=== PATIENT | male | born 1995 | race Caucasian/White ===

== ENCOUNTER 2017-10-24 12:43 | Emergency (ER) | payer OTHER ==
[2017-10-24 12:56] VITALS: TEMP 97.9; O2SAT 97
[2017-10-24] MEDS ORDERED: NS 1,000 ML IV ONE (15:09)
[2017-10-24 15:39] LABS: % IMMATURE GRANULYOCYTES 0.3 % (0.0-1.1); ABSOLUTE IMMATURE GRANULOCYTES 0.02 10^3/uL (0.00-0.10); ADD DIFF? NO; ADD MORPH? NO; ADD SCAN? NO; ATYPICAL LYMPHOCYTE FLAG 10 (0-99); FRAGMENT RBC FLAG 0 (0-99); HEMATOCRIT 43.4 % (40.0-51.0); HEMOGLOBIN 15.6 g/dL (13.7-17.5); LEFT SHIFT FLG 0 (0-99); LIPEMIA HEMOLYSIS FLAG 90 (0-99); MEAN CELL HEMOGLOBIN 33.3 pg (27.9-34.1); MEAN CELL HEMOGLOBIN CONCENTR. 35.9 g/dL (32.4-36.7); MEAN CELL VOLUME 92.5 fL (81.5-99.8); MEAN PLATELET VOLUME 10.2 fL (8.7-11.7); PLATELET CLUMPS FLAG 0 (0-99); PLATELET COUNT 259 10^3/uL (150-400); RED BLOOD CELL COUNT 4.69 10^6/uL (4.40-6.38); RED CELL DISTRIBUTION WIDTH 13.1 % (11.5-15.2)
[2017-10-24 16:02] LABS: ANION GAP 15 mEq/L (8-16); CALCIUM 9.9 mg/dL (8.5-10.4); CARBON DIOXIDE 27 mEq/l (22-31); CHLORIDE 101 mEq/L (97-110); CREATININE 0.8 mg/dL (0.7-1.3); GLOMERULAR FILTRATION RATE > 60; GLUCOSE 108 mg/dL (70-100); SODIUM 143 mEq/L (134-144)
--- NOTE | 2017-10-24 16:08 | EDPHY ---
General Narrative: CHIEF COMPLAINT: hand pain, foot pain HISTORY OF PRESENT ILLNESS: Patient complains of pain to both feet and both hands. This started about 4 weeks ago and the feet. It is a burning, sharp pain that is constant. It has never improved. It is worse when he attempts to walk. Complains of weakness in the legs as well. Over the past 2 weeks that spread to his hands. It does not involve the arms, thighs, or trunk. Symptoms have not improved, thus he went to an urgent care. While he was there he started have some chest pain that he feels was due to anxiety. This was early this morning. They sent him to our facility for higher level care. He no longer has any chest pain but still has arm any complaints this symptoms do get much worse when he goes outside in the cold and improves when he goes inside. No other associated complaints or modifying factors. REVIEW OF SYSTEMS: Ten systems reviewed and are negative unless otherwise noted in the HPI PCP: None SPECIALISTS: None PAST MEDICAL HISTORY: Orthopedic injuries, anxiety. Previous IV drug abuse. No recent immunizations or vaccinations PAST SURGICAL HISTORY: Orthopedic SOCIAL HISTORY: Nonsmoker. Occasional alcohol. Occasional marijuana use. [employer] student FAMILY HISTORY: Noncontributory EXAMINATION General Appearance: Alert, no distress Head: normocephalic, atraumatic Eyes: Pupils equal and round, no conjunctival pallor or injection ENT, Mouth: Mucous membranes moist. Airway patent Neck: Normal inspection, supple, non-tender Respiratory: Lungs are clear to auscultation. No wheezing rhonchi or crackles Cardiovascular: Regular rate and rhythm. No murmur Gastrointestinal: Abdomen is soft and nontender Back: non-tender, no bony abnormalities Neurological: GCS 15. Cranial nerves 2-12 grossly intact A&O, nonfocal, normal steady gait. Strength is symmetric in all 4 limbs at 5/5. Sensory symmetric in the arms and legs. Normal [id number]. No pronator drift. Skin: Warm and dry, no rash. No petechiae or purpura. Extremities: Nontender, no pedal edema Psychiatric: Mood and affect normal DIFFERENTIAL DIAGNOSES: Including but not limited to peripheral neuropathy, Raynaud's phenomenon, electrolyte disturbance, drug abuse, diabetes MDM: 3:05 p.m. Pain and reported sensory changes with no appreciated abnormality on examination. His neuro exam is fully intact. Excellent strength in all 4 limbs. I will order laboratory studies and provide IV fluid with some Toradol for his pain if his creatinine is normal. 4:25 p.m. Laboratory studies are all within normal limits. I re-evaluated the patient at this time. He still having pain, thus the Toradol will now be administered. We discussed going home with short course of Neurontin, hydroxyzine and calcium channel bessy. I do not think the patient has Guillain-Percy as he has a completely normal neuro examination despite his complaints. I do feel he may have a component of Raynaud's phenomenon and possibly peripheral neuropathy. Laboratory studies are negative and I will refer him to primary care physician for further workup. He is comfortable with this plan. He is fully ambulatory without difficulty. SUPERVISION: Patient was independently examined, but I discussed the case with my secondary supervising physician Dr. Mayo - History Smoking Status: Never smoked - Objective Vital Signs: Initial Vital Signs Temperature (C) 97.9 F 10/24/17 12:54 Heart Rate 104 H 10/24/17 12:54 Respiratory Rate 18 10/24/17 12:54 Blood Pressure 120/94 H 10/24/17 12:54 O2 Sat (%) 97 10/24/17 12:54 O2 Delivery Mode Room Air Allergies/Adverse Reactions: No Known Allergies Allergy (Verified 05/01/16 14:13) Home Medications: Medication Instructions Recorded Hydrocodone/APAP 5/325 [Fortine 1 - 2 tab PO Q4H PRN #10 tab 05/01/16 5/325] Ibuprofen [Motrin (*)] 800 mg PO Q6-8PRN #30 tab 05/01/16 LORazepam [Ativan] 0.5 mg PO 05/01/16 guaiFENesin [Guaifenesin ER] 1,200 mg PO BID #10 tab.er.12h 05/01/16 Gabapentin [Neurontin 300 MG (*)] 300 mg PO BID PRN #10 cap 10/24/17 NIFEdipine [Procardia 10 mg (*)] 10 mg PO TID PRN #15 cap 10/24/17 hydrOXYzine HCL [Hydroxyzine HCl] 1 - 2 tab PO Q6-8PRN PRN #15 tablet 10/24/17 Departure - Departure Disposition: Home, Routine, Self-Care Clinical Impression: Foot pain Qualifiers: Laterality: bilateral Qualified Code(s): M79.671 - Pain in right foot; M79.672 - Pain in left foot; M79.672 - Pain in left foot Hand pain Qualifiers: Laterality: bilateral Qualified Code(s): M79.641 - Pain in right hand; M79.642 - Pain in left hand; M79.642 - Pain in left hand Condition: Good Instructions: Raynaud Disease (ED), Peripheral Neuropathy (ED), Paresthesia (ED ) Additional Instructions: 1. Neurontin as prescribed. Wait 1-2 hours before trying next medication 2. If no improvement with the 1st medication, try Nifedipine as prescribed. Wait 1-2 hours before trying next medication 3. If no improvement with the 2nd medication, try hydroxyzine as prescribed 4. Contact the on-call primary care physician as discussed and provided 5. ED precautions as discussed Referrals: Christi Gutierrez MD [Medical Doctor] - As per Instructions Prescriptions: Gabapentin [Neurontin 300 MG (*)] 300 mg PO BID PRN #10 cap PRN Reason: Pain, Breakthrough hydrOXYzine HCL [Hydroxyzine HCl] 1 - 2 tab PO Q6-8PRN PRN #15 tablet PRN Reason: Anxiety NIFEdipine [Procardia 10 mg (*)] 10 mg PO TID PRN #15 cap PRN Reason: Pain, Breakthrough
[2017-10-24] MEDS ORDERED: KETOROLAC 30 MG/1 ML SDV IVP ONE (16:26)
[2017-10-24 16:39] VITALS: BP 140/96; PULSE 85; RESP 16
== END 2017-10-24 17:05 | disposition home or self-care (01) ==
DX: M79.672 Pain in left foot (principal); M79.671 Pain in right foot; M79.641 Pain in right hand; M79.642 Pain in left hand
CPT/HCPCS: 96374; J1885

== ENCOUNTER 2017-10-27 09:28 | Emergency (ER) | payer OTHER ==
--- NOTE | 2017-10-27 10:07 | EDPHY ---
General Narrative: CHIEF COMPLAINT: Difficulty breathing, tingling of the hands and feet HISTORY OF PRESENT ILLNESS: Patient complains of ongoing pain and tingling in the hands and feet. This started 4 weeks ago in the feet, 10 days ago in the hands. It is worsening. It is now moving up to the wrist. He also has some difficulty breathing and intermittent chest pain over the past 2 days. I evaluated the patient with same complaints 2 days ago. He was discharged home stable condition with medications to help his symptoms. He said the medications do help, the nifedipine more than the others. But not significantly. No exertional chest pain. No cough. No headache. No neck pain or stiffness. No difficulty urinating. No saddle anesthesia. No back pain. No IV drug use. No other associated complaints or modifying factors. He attempted to contact the on- call primary care physician with no appointment available this week. REVIEW OF SYSTEMS: Ten systems reviewed and are negative unless otherwise noted in the HPI PCP: Currently trying to establish with Dr. Gutierrez SPECIALISTS: None PAST MEDICAL HISTORY: Anxiety, Orthopedic injuries PAST SURGICAL HISTORY: Orthopedic SOCIAL HISTORY: Nonsmoker. Alcohol user. For IV drug use FAMILY HISTORY: Noncontributory EXAMINATION General Appearance: Alert, no distress Head: normocephalic, atraumatic Eyes: Pupils equal and round, no conjunctival pallor or injection ENT, Mouth: Mucous membranes moist. Airway patent Neck: Normal inspection, supple, non-tender Respiratory: Lungs are clear to auscultation no wheezing, rhonchi or crackles Cardiovascular: Regular rate and rhythm. No murmur Gastrointestinal: Abdomen is soft and nontender. No tympany. No rigidity. Bowel sounds symmetric in all 4 quadrants. Back: non-tender, no bony abnormalities Neurological: GCS 15. Cranial nerves 2-12 grossly intact. A&O, nonfocal, strength is symmetric in all 4 limbs of 5/5. No pronator drift. Normal finger- nose. Reports paresthesia on the backs and palms of the hands as well as the dorsum and plantar surface of the feet. Skin: Warm and dry, no rash Extremities: Nontender, no pedal edema Psychiatric: Mood and affect normal DIFFERENTIAL DIAGNOSES: Including but not limited to peripheral neuropathy, anxiety, Guillain-Champion, electrolyte disturbance MDM: 10:00 a.m. Ongoing paresthesia of the hands and feet with difficulty breathing. None of the symptoms have acutely change the past 2 days, and they have all been present for greater than 2 days. I examined the patient 2 days ago and his examination is unchanged. He is fully neuro intact for his vital signs are within normal limits. I did not obtain a chest x-ray 2 days ago, but I will today. I will discuss with Dr. Mayo. Laboratory studies pending. 10:15 a.m. Patient evaluated by Dr. Mayo. He agrees that we should proceed with MRIs as ordered. Clinical suspicion is low for any organic cause for this, but the patient does returned with persistent complaints that do not match specifically for any one diagnosis that we can yet ascertain. 11:00 a.m. Contacted by MRI department (Monique). Notified that the patient will now be able to MRI for his for scans until 1:30 p.m. due to the time frame required for the 4 scans. Laboratory studies are unremarkable. Chest x-ray as read by me reveals no acute findings. 12:00 p.m. Patient resting comfortably. Awaiting MRI. No acute distress. 1:30 p.m. Patient going to MRI 2:40 p.m. Notified by radiologist Dr. Parks. MRI of the brain and cervical spine are within normal limits. Thoracic and lumbar spine pending. 3:12 p.m. Notified by radiologist Dr. Parks. 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 MR lumbar spine pending. 3:25 p.m. Contacted by radiologist Dr. Parks. MRI of the lumbar spine findings discussed. I will consult Neurology to discuss the thoracic lumbar findings. 3:45 p.m. Case discussed with Dr. Green. He does not feel that the thoracic hydromyelia would contribute to the patient's symptoms. He would like the patient to be seen in his office. I discussed this with the patient he is comfortable this plan but his strength remains symmetric. He is in no acute distress. Discharge home with short course of anti anxiety medication and outpatient follow-up instructions. ED precautions discussed. SUPERVISION: Patient was evaluated and examined in conjunction with my secondary supervising physician as documented. We have both examined the patient. - Diagnostics Imaging Results: Imaging Impressions Chest X-Ray 10/27/17 10:00 Impression: Normal. Brain MRI 10/27/17 10:16 Impression: Normal MRI of the brain without contrast. Cervical Spine MRI 10/27/17 10:16 Impression: 1. Mild features of degenerative disk disease at C2-C3, with left paracentral annular bulging, without neural impingement. Cervical spine is otherwise normal in appearance. Lumbar Spine MRI 10/27/17 10:16 Impression: Mild features of degenerative disk disease at L5-S1, otherwise negative MRI examination of lumbar spine. Results called to Brian Cárdenas PA-C, at 3:30 p.m. Thoracic Spine MRI 10/27/17 10:16 Impression: 1. Mild features of degenerative disk disease at T7-T8 and T8-T9. No evidence of discrete disk prolapse or neural impingement. 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 Results called to Brian Cárdenas PA-C, at 3:10 PM. - History Smoking Status: Never smoked - Objective Vital Signs: Initial Vital Signs Temperature (C) 98.4 F 10/27/17 09:30 Heart Rate 76 10/27/17 09:30 Respiratory Rate 16 10/27/17 09:30 Blood Pressure 134/82 H 10/27/17 09:30 O2 Sat (%) 98 10/27/17 09:30 O2 Delivery Mode Room Air Allergies/Adverse Reactions: No Known Allergies Allergy (Verified 10/27/17 09:29) Home Medications: Medication Instructions Recorded Gabapentin [Neurontin 300 MG (*)] 300 mg PO BID PRN #10 cap 10/24/17 NIFEdipine [Procardia 10 mg (*)] 10 mg PO TID PRN #15 cap 10/24/17 LORazepam [Ativan] 1 mg PO Q8 PRN #9 tablet 10/27/17 Laboratory Results: Laboratory Results 10/27/17 10:11 10/27/17 10:11 10/27/17 10/27/17 10/27/17 11:15 10:11 10:11 WBC 4.96 10^3/uL 10^3/uL (3.80-9.50) RBC 4.20 10^6/uL L 10^6/uL (4.40-6.38) Hgb 13.9 g/dL g/dL (13.7-17.5) Hct 39.6 % L % (40.0-51.0) MCV 94.3 fL fL (81.5-99.8) MCH 33.1 pg pg (27.9-34.1) MCHC 35.1 g/dL g/dL (32.4-36.7) RDW 13.0 % % (11.5-15.2) Plt Count 213 10^3/uL 10^3/uL (150-400) MPV 10.0 fL fL (8.7-11.7) Neut % (Auto) 57.7 % % (39.3-74.2) Lymph % (Auto) 32.5 % % (15.0-45.0) [place] % (Auto) 6.0 % % (4.5-13.0) Eos % (Auto) 3.0 % % (0.6-7.6) Baso % (Auto) 0.6 % % (0.3-1.7) Nucleat RBC Rel Count 0.0 % % (0.0-0.2) Absolute Neuts (auto) 2.86 10^3/uL 10^3/uL (1.70-6.50) Absolute Lymphs (auto) 1.61 10^3/uL 10^3/uL (1.00-3.00) Absolute Monos (auto) 0.30 10^3/uL 10^3/uL (0.30-0.80) Absolute Eos (auto) 0.15 10^3/uL 10^3/uL (0.03-0.40) Absolute Basos (auto) 0.03 10^3/uL 10^3/uL (0.02-0.10) Absolute Nucleated RBC 0.00 10^3/uL 10^3/uL (0-0.01) Immature Gran % 0.2 % % (0.0-1.1) Immature Gran # 0.01 10^3/uL 10^3/uL (0.00-0.10) Sodium 146 mEq/L H mEq/L (134-144) Potassium 4.3 mEq/L mEq/L (3.5-5.2) Chloride 105 mEq/L mEq/L (97-110) Carbon Dioxide 26 mEq/l mEq/l (22-31) Anion Gap 15 mEq/L mEq/L (8-16) BUN 18 mg/dL mg/dL (7-23) Creatinine 0.8 mg/dL mg/dL (0.7-1.3) Estimated GFR > 60 Glucose 92 mg/dL mg/dL (70-100) Calcium 9.4 mg/dL mg/dL (8.5-10.4) Lipase 89 IU/L IU/L (23-300) Urine Opiates Screen NEGATIVE (NEGATIVE) Urine Barbiturates NEGATIVE (NEGATIVE) Ur Phencyclidine Scrn NEGATIVE (NEGATIVE) Ur Amphetamine Screen NEGATIVE (NEGATIVE) U Benzodiazepines Scrn NEGATIVE (NEGATIVE) Urine Cocaine Screen NEGATIVE (NEGATIVE) U Marijuana (THC) Screen NON-NEGATIVE H (NEGATIVE) Medications Given: Discontinued Medications Lorazepam (Ativan Injection) 1 mg IVP EDNOW ONE Stop: 10/27/17 10:44 Last Admin: 10/27/17 13:28 Dose: 1 mg Departure - Departure Disposition: Home, Routine, Self-Care Clinical Impression: Paresthesia of hand, bilateral, Paresthesia of both feet Condition: Good Instructions: Paresthesia (ED) Additional Instructions: 1. Medication as prescribed as needed 2. Contact neurologist for outpatient follow-up 3. ED precautions as discussed Referrals: Pradip Green DO [Doctor of Osteopathy] - As per Instructions Prescriptions: LORazepam [Ativan] 1 mg PO Q8 PRN #9 tablet PRN Reason: Anxiety
--- NOTE | 2017-10-27 10:08 | CPEKG ---
Heart Rate: 74 RR Interval: 811 P-R Interval: 140 QRSD Interval: 86 QT Interval: 372 QTC Interval: 413 P [place]: 76 QRS [place]: 56 T Wave [place]: 49 EKG Severity - NORMAL ECG - EKG Impression: SINUS RHYTHM Electronically Signed By: Pradip Mayo 27-Oct-2017 10:10:29
[2017-10-27 10:18] LABS: % IMMATURE GRANULYOCYTES 0.2 % (0.0-1.1); ABSOLUTE IMMATURE GRANULOCYTES 0.01 10^3/uL (0.00-0.10); ADD DIFF? NO; ADD MORPH? NO; ADD SCAN? NO; ATYPICAL LYMPHOCYTE FLAG 0 (0-99); FRAGMENT RBC FLAG 0 (0-99); HEMATOCRIT 39.6 % (40.0-51.0); HEMOGLOBIN 13.9 g/dL (13.7-17.5); LEFT SHIFT FLG 0 (0-99); LIPEMIA HEMOLYSIS FLAG 90 (0-99); MEAN CELL HEMOGLOBIN 33.1 pg (27.9-34.1); MEAN CELL HEMOGLOBIN CONCENTR. 35.1 g/dL (32.4-36.7); MEAN CELL VOLUME 94.3 fL (81.5-99.8); PLATELET CLUMPS FLAG 10 (0-99); PLATELET COUNT 213 10^3/uL (150-400)
[2017-10-27] MEDS ORDERED: LORazepam 2 MG/ML INJ IVP ONE (10:43)
[2017-10-27 10:44] LABS: ANION GAP 15 mEq/L (8-16); CALCIUM 9.4 mg/dL (8.5-10.4); CARBON DIOXIDE 26 mEq/l (22-31); CHLORIDE 105 mEq/L (97-110); CREATININE 0.8 mg/dL (0.7-1.3); GLOMERULAR FILTRATION RATE > 60; GLUCOSE 92 mg/dL (70-100); POTASSIUM 4.3 mEq/L (3.5-5.2); SODIUM 146 mEq/L (134-144)
[2017-10-27 13:21] VITALS: RESP 18; O2SAT 97
[2017-10-27] MEDS ORDERED: LORazepam 2 MG/ML INJ ONE (13:27)
[2017-10-27 16:24] VITALS: BP 129/71; PULSE 62; TEMP 98.6
== END 2017-10-27 16:23 | disposition home or self-care (01) ==
DX: R20.2 Paresthesia of skin (principal)
CPT/HCPCS: 80305; 96374; J2060